=== PATIENT | female | born 1955 | race Caucasian/White ===

== ENCOUNTER 2020-06-10 08:05 | Observation (INO) ==
[2020-06-10] MEDS ORDERED: Lidocaine -MPF 2% 2 ML VIAL ONE (08:26)
[2020-06-10] MEDS ORDERED: Simethicone 40 MG/0.6 ML MLS IR ONE (08:40)
[2020-06-10] MEDS ORDERED: 0.9 % Sodium Chloride 1,000 ML IVC SCH (08:45)
[2020-06-10] MEDS ORDERED: Ondansetron 4 MG/2 ML VIAL ONE (09:33)
[2020-06-10] MEDS ORDERED: Ondansetron 4 MG/2 ML VIAL IVP PRN ×2 (09:45→12:12)
[2020-06-10] MEDS ORDERED: Clindamycin 900 MG/50 ML 900 MG/50 ML IV.SOLN IVPB STA (09:47)
[2020-06-10] MEDS ORDERED: Acetaminophen 325 MG TABLET PO ONE ×2 (10:54→11:00)
[2020-06-10] MEDS: Albuterol 2.5 MG/3 ML NEBULIZER IH SCH ×3 (14:45→20:13)
[2020-06-10] MEDS: Acetaminophen 325 MG TABLET PO PRN (16:37)
[2020-06-10] MEDS: Budesonide/Formoterol 160/4.5 1 PUFF INH IH SCH (20:13)
[2020-06-11] MEDS: Albuterol 2.5 MG/3 ML NEBULIZER IH SCH ×4 (00:01→11:42)
[2020-06-11] MEDS: Acetaminophen 325 MG TABLET PO PRN ×2 (05:57→12:16)
[2020-06-11] MEDS ORDERED: Levothyroxine 25 MCG TABLET PO SCH (06:30)
[2020-06-11 07:26] VITALS: BP 106/65
[2020-06-11] MEDS: Budesonide/Formoterol 160/4.5 1 PUFF INH IH SCH (07:55)
[2020-06-11] MEDS ORDERED: lisinopriL 10 MG TABLET PO SCH (09:00)
== END 2020-06-11 12:45 | disposition home or self-care (01) ==
LOC: 3ANU 08:05 → ENDPAV 08:05 → 3ANU 11:38
PROVIDERS: ADMIT Surgery; ATTEND Surgery